=== PATIENT | female | born 1970 | race Hispanic/Latino ===

== ENCOUNTER 2019-03-05 00:59 | Inpatient (IN) | payer OTHER ==
[2019-03-05] VITALS (37 sets, daily range): BP systolic 111–150; BP diastolic 49–95
[~2019-03-05] VITALS: Ht 144.8 cm; Wt 76.3 kg
[2019-03-05] MEDS ORDERED: ASPIRIN 81MG TAB.CHEW ONE (02:17)
[2019-03-05] MEDS ORDERED: NITROGLYCERIN 0.4 MG SL TAB SL ONE (02:17)
[2019-03-05] MEDS ORDERED: METOPROLOL TARTRATE 1 MG/ML 5ML VIAL IV ONE ×2 (02:21→02:28)
[2019-03-05] MEDS ORDERED: NITROGLYCERIN 50 MG/D5% WATER 1 BOT ONE (02:21)
[2019-03-05 02:32] LABS: BASOPHILS % (AUTO) 1.7 % (0.0-5.0); EOSINOPHILS % (AUTO) 1.3 % (0.0-8.0); HEMATOCRIT 45.6 % (36-48); LYMPHOCYTES % (AUTO) 28.9 % (21.0-51.0); MEAN CORPUSCULAR HEMOGLOBIN 32.1 pg (27.0-33.0); MEAN CORPUSCULAR HGB CONC 34.7 g/dL (32.0-36.0); MEAN CORPUSCULAR VOLUME 92.5 fL (79-99); MONOCYTES % (AUTO) 6.7 % (3.0-13.0); NEUTROPHILS % (AUTO) 61.4 % (40.0-77.0); PLATELET COUNT (AUTO) 371 K/uL (130-400); RED BLOOD CELL COUNT(AUTO) 4.93 MIL/uL (4.00-5.50); RED CELL DISTRIBUTION WIDTH 13.6 % (11.0-15.5); WHITE BLOOD COUNT (AUTO) 14.2 K/uL (4.8-10.8)
[2019-03-05 02:43] LABS: CREATININE 0.8 mg/dL (0.5-1.5); POTASSIUM 3.8 mmol/L (3.5-5.1)
[2019-03-05 02:48] LABS: ALBUMIN 4.1 g/dL (3.5-5.0); BILIRUBIN,TOTAL 0.4 mg/dL (0.2-1.0); TOTAL PROTEIN, SERUM 7.6 g/dL (6.0-8.3)
[2019-03-05] MEDS ORDERED: IOHEXOL-350 50ML VIAL IV ONE (02:53)
[2019-03-05] MEDS ORDERED: IOHEXOL 350 MG/ML 100ML INFUS..BTL IV ONE ×2 (02:53→03:40)
[2019-03-05] MEDS ORDERED: LIDOCAINE HCL 1% 20 ML VIAL ONE (02:53)
[2019-03-05] MEDS ORDERED: HEPARIN SODIUM 1000UNIT/ML 10ML VIAL ONE (02:53)
[2019-03-05] MEDS ORDERED: ACETAMINOPHEN 325 MG TAB PO PRN ×2 (03:30)
[2019-03-05] MEDS ORDERED: ONDANSETRON HCL 4 MG/2 ML VIAL IV PRN (03:30)
[2019-03-05] MEDS: NITROGLYCERIN 1GM/1 INCH PACKET TD SCH ×3 (03:30→20:02)
[2019-03-05] MEDS ORDERED: MORPHINE SULFATE 4 MG/1ML SYG IV PRN (03:30)
[2019-03-05] MEDS ORDERED: MORPHINE SULFATE 2 MG/ML 1ML SYG IV PRN (03:30)
[2019-03-05] MEDS ORDERED: HYDRALAZINE HCL 20 MG/ML VIAL IV PRN (03:30)
[2019-03-05 03:32] LABS: INR 0.95 (0.85-1.15); PARTIAL THROMBOPLASTIN TIME 29.2 SEC (26.3-35.5)
[2019-03-05] MEDS ORDERED: NITROGLYCERIN 4.1 GM SPRAY TL ONE (03:46)
[2019-03-05] MEDS ORDERED: LABETALOL HCL 5 MG/ML 20ML VIAL IV ONE (03:47)
[2019-03-05] MEDS ORDERED: CLOPIDOGREL BISULFATE 300 MG TAB ONE (03:50)
[2019-03-05] MEDS ORDERED: NITROGLYCERIN 50 MG/D5% WATER 1 BOT IV PRN (04:15)
[2019-03-05] MEDS ORDERED: ONDANSETRON HCL 4 MG/2 ML VIAL IVP SCH (04:15)
[2019-03-05] MEDS ORDERED: MORPHINE SULFATE 5 MG/ML VIAL IVP SCH (04:15)
[2019-03-05] MEDS ORDERED: ACETAMINOPHEN-CODEINE 300/30MG TAB PO PRN (04:15)
--- NOTE | 2019-03-05 04:19 | NUR ---
REPORT FARM TRACTOR OPERATOR REPORT RECEIVED FROM KALYANI RICO.
--- NOTE | 2019-03-05 04:35 | NUR ---
ADMISSION PATIENT ARRIVE TO ROOM 219 VIA BED. RIGHT GROIN CLEAN, DRY WITH NO HEMATOMA NOTED. RIGHT GROIN SHEATH IN PLACE.
[2019-03-05 07:06] LABS: MEAN CORPUSCULAR HEMOGLOBIN 32.3 pg (27.0-33.0); MEAN CORPUSCULAR HGB CONC 34.6 g/dL (32.0-36.0); MEAN CORPUSCULAR VOLUME 93.5 fL (79-99); PLATELET COUNT (AUTO) 321 K/uL (130-400); RED BLOOD CELL COUNT(AUTO) 4.27 MIL/uL (4.00-5.50); WHITE BLOOD COUNT (AUTO) 12.7 K/uL (4.8-10.8)
[2019-03-05 08:24] LABS: TROPONIN I 37.05 ng/mL (0.00-0.06)
[2019-03-05] MEDS ORDERED: METOPROLOL TARTRATE 25 MG TAB PO SCH (09:00)
[2019-03-05] MEDS ORDERED: LISINOPRIL 10 MG TABLET PO SCH (09:00)
[2019-03-05] MEDS: NICOTINE 14 MG/ 24 HR PATCH TD SCH (09:00)
[2019-03-05] MEDS: METOPROLOL TARTRATE 25 MG TAB PO SCH ×2 (09:24→21:40)
[2019-03-05] MEDS: ISOSORBIDE MONO 30MG TAB SR PO SCH (09:24)
[2019-03-05] MEDS: FAMOTIDINE/PF 20 MG/2 ML VIAL IV SCH ×2 (09:37→21:39)
[2019-03-05 11:56] LABS: INR 0.99 (0.85-1.15); PARTIAL THROMBOPLASTIN TIME 29.1 SEC (26.3-35.5); PROTHROMBIN TIME 10.4 SEC (9.6-11.6)
--- NOTE | 2019-03-05 12:45 | NUR ---
D/C RIGHT GROIN SHEATH AFTER 30MIN OF APPLIED PRESSURE. NO HEMATOMA. DRESSING APPLIED. PULSES TO RIGHT LE +2.
--- NOTE | 2019-03-05 14:37 | NUR ---
FRANKLIN Devries met with pt and sister Deana Murcia. Pt lives with her common law Andres Agosto [phone], daughter is ER contact [phone] as well. 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 Denies dc needs. Plan is home at [place] Addendum: 03/05/19 at 1438 by FIORELLA TELLO Amended: Links added.
--- NOTE | 2019-03-05 15:30 | NUR ---
HOB 45 DEGREES. NO SIGNS OF BLEEDING, NO HEMATOMA TO RIGHT GROIN.
[2019-03-05] MEDS: CLOPIDOGREL BISULFATE 75 MG TAB PO SCH (15:48)
[2019-03-05] MEDS: ASPIRIN 81MG TAB.CHEW PO SCH (15:48)
[2019-03-05] MEDS: ENOXAPARIN SODIUM 30 MG/0.3 ML SQ SCH ×2 (15:49→21:40)
--- NOTE | 2019-03-05 17:36 | NUR ---
PATIENT WALKED TO CHAIR. NO COMPLICATIONS.
--- NOTE | 2019-03-05 20:00 | NUR ---
ASSESSMENT AWAKE. DENIES PAIN. ASSESSMENT COMPLETED. SEE FLOW SHEET. ENCOURAGED TO CALL FOR WANTS OR NEEDS. Addendum: 03/05/19 at 2027 by CHARLOTTE PETERSON RN RN Amended: Links added.
[2019-03-05] MEDS ORDERED: ATORVASTATIN CALCIUM 10 MG TABLET PO SCH (21:00)
[2019-03-05] MEDS ORDERED: LISINOPRIL 2.5 MG TABLET PO SCH ×2 (21:18→21:45)
[2019-03-06] VITALS (12 sets, daily range): BP systolic 107–150; BP diastolic 51–73
[2019-03-06] MEDS: NITROGLYCERIN 1GM/1 INCH PACKET TD SCH (03:57)
--- NOTE | 2019-03-06 08:51 | NUR ---
DR. STARKS AT BEDSIDE. MD UPDATED ON PATIENT STATUS AND LABS. ORDERS GIVEN, SEE CHART.
[2019-03-06] MEDS: NICOTINE 14 MG/ 24 HR PATCH TD SCH (09:00)
[2019-03-06] MEDS: ISOSORBIDE MONO 30MG TAB SR PO SCH ×2 (09:00→09:41)
[2019-03-06] MEDS: CLOPIDOGREL BISULFATE 75 MG TAB PO SCH (09:41)
[2019-03-06] MEDS: FAMOTIDINE/PF 20 MG/2 ML VIAL IV SCH ×2 (09:41→20:19)
[2019-03-06] MEDS: ASPIRIN 81MG TAB.CHEW PO SCH (09:41)
[2019-03-06] MEDS: ENOXAPARIN SODIUM 30 MG/0.3 ML SQ SCH ×2 (09:42→20:19)
--- NOTE | 2019-03-06 12:00 | NUR ---
TRANSFER PT AMBULATED FROM RM 219 TO RM 204 ACCOMPANIED BY STAFF & FAMILY. TOLERATED WELL. NO DISTRESS NOTED. DENIES CHEST PAIN OR DISCOMFORT. DENIES PALPITATIONS. TELE: SR 80s. KIMBERLEE N/V AND/OR DIARRHEA. RT GROIN SOFT, NON-TENDER. PUNCTURE SITE WELL APPROX, NO DRAINAGE NOTED. (+) STRONG PEDAL PULSES. BLE PINK & WARM TO TOUCH. ORIENTED TO RM. INSTRUCTED TO CALL FOR ASSISTANCE. CALL JORGE W/IN REACH.
[2019-03-06] MEDS: METOPROLOL TARTRATE 50 MG TAB PO SCH (20:19)
[2019-03-06] MEDS ORDERED: ATORVASTATIN CALCIUM 40 MG TABLET PO SCH (21:00)
[2019-03-07 03:00] VITALS: BP 127/74
[2019-03-07 07:48] VITALS: BP 131/67
--- NOTE | 2019-03-07 08:00 | NUR ---
AM ASSESSMENT PT SITTING IN BED, WATCHING TV. FAMILY @ BEDSIDE. A/O X 3. NO SOB. NO DISTRESS NOTED. DENIES CHEST PAIN OR DISCOMFORT. DENIES PALPITATIONS. DENIES INCISIONAL PAIN. TELE: SR 80s. DENIES N/V AND/OR DIARRHEA. RT GROIN PUNCTURE SITE SOFT, NON-TENDER. NO BLEEDING, NO HEMATOMA NOTED. (+) STRONG PEDAL PULSES. BLE PINK & WARM TO TOUCH. UP AD JUNIOR. INSTRUCTED TO CALL FOR ASSISTANCE. CALL ANIA W/IN REACH.
[2019-03-07] MEDS: ASPIRIN 81MG TAB.CHEW PO SCH (08:32)
[2019-03-07] MEDS: ISOSORBIDE MONO 30MG TAB SR PO SCH (08:32)
[2019-03-07] MEDS: CLOPIDOGREL BISULFATE 75 MG TAB PO SCH (08:32)
[2019-03-07] MEDS: METOPROLOL TARTRATE 50 MG TAB PO SCH (08:32)
[2019-03-07] MEDS: ENOXAPARIN SODIUM 30 MG/0.3 ML SQ SCH (08:33)
[2019-03-07] MEDS: NICOTINE 14 MG/ 24 HR PATCH TD SCH (08:33)
[2019-03-07] MEDS ORDERED: FAMOTIDINE 20MG TAB 20 MG TAB PO SCH (09:00)
[2019-03-07] MEDS ORDERED: LISINOPRIL 5 MG TABLET PO SCH (09:00)
[2019-03-07 11:54] VITALS: BP 119/71
--- NOTE | 2019-03-07 16:00 | NUR ---
DISCHARGE VERBAL & WRITTEN DISCHARGE INSTRUCTIONS REVIEWED & GIVEN TO PT & FAMILY. QUESTIONS ENCOURAGED & CLARIFIED. PROPER CARE & ACTIVITY AFTER LEFT HEART CATH W/STENT PLACEMENT REVIEWED. NEW PRESCRIBED MEDICATIONS REVIEWED. PRESCRIPTION X 2 GIVEN TO PT'S SPOUSE TO TAKE TO PT'S PHARMACY; SIGNED COPIES PLACED IN CHART. PT INFORMED TO F/U W/PCP IN 7-10 DAYS. PT TO SEARCH FOR PCP IN THE FOLLOWING DAYS. F/U APPT INFORMATION GIVEN TO PT. PT TO SCHEDULE F/U APPT W/DR DAVIS. IV DISCONTINUED. TELE SHY REMOVED. PT & FAMILY TO GATHER PERSONAL BELONGINGS. WILL NOTIFY STAFF WHEN SPOUSE ARRIVES TO TAKE PT HOME.
[2019-03-07 16:30] VITALS: BP 130/77
--- NOTE | 2019-03-07 16:45 | NUR ---
DISCHARGE SPOUSE HERE TO TAKE PT HOME. PT TAKEN TO PRIVATE VEHICLE VIA WC BY Rylie CHRISTIANSON PCP, ACCOMPANIED BY FAMILY. NO DISTRESS NOTED.
== END 2019-03-07 16:45 | disposition home or self-care (01) | DRG 247 ==
LOC: EDH 00:59 → EDHIP 01:00 → 2CH 04:31 → 2AH 03-06 13:03
PROVIDERS: ADMIT Internal Medicine; ATTEND Internal Medicine
PROC: 027034Z Dilation of Coronary Artery, One Artery with Drug-eluting Intraluminal Device, Percutaneous Approach (ICD-10-PCS; principal; 2019-03-05)
PROC: 4A023N7 Measurement of Cardiac Sampling and Pressure, Left Heart, Percutaneous Approach (ICD-10-PCS; 2019-03-05)
PROC: B2151ZZ Fluoroscopy of Left Heart using Low Osmolar Contrast (ICD-10-PCS; 2019-03-05)
PROC: B2111ZZ Fluoroscopy of Multiple Coronary Arteries using Low Osmolar Contrast (ICD-10-PCS; 2019-03-05)
DX: I21.09 ST elevation (STEMI) myocardial infarction involving other coronary artery of anterior wall (principal); F17.210 Nicotine dependence, cigarettes, uncomplicated; F12.90 Cannabis use, unspecified, uncomplicated; E78.00 Pure hypercholesterolemia, unspecified; E78.5 Hyperlipidemia, unspecified; I11.9 Hypertensive heart disease without heart failure; M62.838 Other muscle spasm; I25.10 Atherosclerotic heart disease of native coronary artery without angina pectoris; E66.01 Morbid (severe) obesity due to excess calories; Z68.36 Body mass index [BMI] 36.0-36.9, adult; Z90.710 Acquired absence of both cervix and uterus; Z79.899 Other long term (current) drug therapy; Z98.891 History of uterine scar from previous surgery; Z79.82 Long term (current) use of aspirin; Z79.02 Long term (current) use of antithrombotics/antiplatelets; X50.0XXA Overexertion from strenuous movement or load, initial encounter; Y92.89 Other specified places as the place of occurrence of the external cause; Y93.89 Activity, other specified; Z71.6 Tobacco abuse counseling
CPT/HCPCS: 36415; 80053; 80061; 82550; 83874; 84484; 85025; 85027; 85610; 85730; 93005; 93306; 93458; C1725; C1769; C1887; C1894; C9606; G0378; J1644; J1650; J3490; Q9967